=== PATIENT | male | born 1965 | race Caucasian/White ===

== ENCOUNTER 2017-06-15 12:01 | Emergency (ER) | payer MEDICAID ==
[~2017-06-15] VITALS: Ht 172.7 cm; Wt 65.5 kg
[2017-06-15 12:08] VITALS: Ht 172.7 cm; Wt 65.5 kg
--- NOTE | 2017-06-15 14:30 | RADRPT ---
PROCEDURE: Ultrasound of the right lower extremity venous system. CLINICAL INDICATION: Right leg pain and swelling, deep venous thrombosis TECHNIQUE: Glynn scale with and without compression, color doppler, spectral doppler of the venous system of the right lower extremity was performed. Venous augmentation maneuvers were utilized. COMPARISON: No prior studies are available for comparison. FINDINGS: Common femoral vein: Patent. Femoral vein: Patent. Popliteal vein: Patent. Calf veins: Patent. No soft tissue abnormalities are identified. IMPRESSION: No evidence of a deep vein thrombosis within the right lower extremity. RPTAT: AADD .Kip Murillo MD, MD Date Time Electronically viewed and signed by .Kip Murillo MD, on 06/15/2017 14:29 .B/
--- NOTE | 2017-06-15 14:40 | ERD ---
ER Documentation Chief Complaint Date/Time DATE: 06/15/17 TIME: 14:35 Chief Complaint 8/10 r. leg pain x 4 hours UKN cause HPI This a 51-year-old male who presents the emergency department today complaining of sharp stabbing right leg pain that occurred when he went to sit down to go to the bathroom. Patient states that his leg felt like it was trembling. Denies any back pain, previous trauma. States that the pain is gone down it is better. Denies any chest pain or shortness of breath. He is not taking any medication. States he is concerned because "his brother had a blood clot in his leg and it went to his lungs or heart and he ". ROS All systems reviewed and are negative except as per history of present illness. Medications Home Meds Active Scripts Naproxen* (Naprosyn*) 500 Mg Tablet, 500 MG PO BID Y for PAIN AND/OR INFLAMMATION, #30 TAB Prov:PAPITO KELLER PA-C 06/15/17 Allergies Allergies: Coded Allergies: No Known Allergy (Unverified , 06/15/17) PMhx/Soc History of Surgery: No Anesthesia Reaction: No Hx Neurological Disorder: No Hx Respiratory Disorders: No Hx Cardiac Disorders: No Hx Psychiatric Problems: No Hx Miscellaneous Medical Probl: No Hx Alcohol Use: No Hx Substance Use: No Hx Tobacco Use: No Smoking Status: Never smoker Physical Exam Vitals Vital Signs Date Time Temp Pulse Resp B/P Pulse Ox O2 Delivery O2 Flow Rate FiO2 06/15/17 12:08 97.6 73 18 139/77 98 Physical Exam Const: Nontoxic-appearing Head: Atraumatic Eyes: Normal Conjunctiva ENT: Normal External Ears, Nose and Mouth. Neck: Full range of motion..~ No meningismus. Resp: Clear to auscultation bilaterally Cardio: Regular rate and rhythm, no murmurs Skin: No petechiae or rashes Back: No midline or flank tenderness. Negative straight leg raise. Nontender spine Ext: No cyanosis, or edema. Full active range of motion. No calf tenderness. Mild tenderness palpation posterior aspect of thigh and hamstring. Neur: Awake and alert Psych: Normal Mood and Affect Results 24 hrs DIAGNOSTIC IMAGING REPORT Patient: CHELSEY GHOSH : 1965 Age: 51 Sex: M MR #: [id number] DOS: 06/15/17 0000 Ordering MD: PAPITO KELLER PA-C Location: [facility] Room/Bed: PROCEDURE: Ultrasound of the right lower extremity venous system. CLINICAL INDICATION: Right leg pain and swelling, deep venous thrombosis TECHNIQUE: Glynn scale with and without compression, color doppler, spectral doppler of the venous system of the right lower extremity was performed. Venous augmentation maneuvers were utilized. COMPARISON: No prior studies are available for comparison. FINDINGS: Common femoral vein: Patent. Femoral vein: Patent. Popliteal vein: Patent. Calf veins: Patent. No soft tissue abnormalities are identified. IMPRESSION: No evidence of a deep vein thrombosis within the right lower extremity. RPTAT: AADD .Kip Murillo MD, MD Date Time Electronically viewed and signed by .Kip Murillo MD, MD on 06/15/2017 14:29 .B/ CC: PAPITO KELLER PA-C Procedures/MDM This is a 51-year-old male who presented to the emergency department today complaining of sharp stabbing leg pain that occurred when he went to sit down to go to the bathroom. Although patient denied any pain currently or in no chest pain or shortness of breath he was concerned about a blood clot. I did have Dr. Jean see and evaluate the patient he did feel it was reasonable given patient's concerns to do an ultrasound Ultrasound shows no evidence of deep vein thrombosis in the right lower extremity. Patient is afebrile and otherwise well-appearing. There is no evidence of cellulitis. Low suspicion for rhabdomyolysis. Patient symptoms at this time appear musculoskeletal strain versus muscle spasm. Patient will begin a prescription for Naprosyn for home At this time the patient is stable for discharge and outpatient management. Patient should follow up with their PCP in the next 1-2 days. He was given a list of community resources. They may return to the emergency department sooner for any persistent or worsening of symptoms. Patient understood and agreed with the plan. Departure Diagnosis: Primary Impression: Pain of right leg Condition: PAPITO Sharp PA-C Jun 15, 2017 14:39
[2017-06-15] MEDS ORDERED: NAPR-260 PO (14:41)
== END 2017-06-15 14:44 | disposition home or self-care (01) ==
LOC: FTE 12:01
DX: M79.604 Pain in right leg (principal)
CPT/HCPCS: 93971; Z7502